=== PATIENT | female | born 1975 | race Caucasian/White ===

== ENCOUNTER → 2019-05-01 | Outpatient (CLI) | payer MEDICARE, MEDICAID ==
[~2019-05-01] MED LIST: ABILIFY; AZITHROMYCIN 2250 MG PO; CLONAZEPAM 1 MG1 M1 PO; COUMADIN; COUMADIN 5 MG TA5 M1 PO; DEXADRINE; DILAUDID 4 MG TA4 MG PO; DILTIA XT240 MG PO; DITROPAN XL5 M1; DITROPAN XL5 MG PO; ENOXAPARIN80 MG/0.8 SQ; ERYTHROMYCIN250 MG PO; ESTROPIPATE0.75 MG PO; FLEXERIL; K-DUR 20 MEQ T20 MEQ PO; LASIX 40 MG TAB40 MG PO; MIRAPEX 0.250.25 M1 PO; MIRAPEX0.125 MG PO; NORCO 5-325 TA1 EACH PO; OXYCONTIN CR 1010 M1; PEGINTRON; PREDNISONE 10 M10 M1 PO; PROZAC 20 MG20 MG PO; REBETOL200 MG; RESTORIL15 MG PO; TOPIRAGEN50 MG PO; VICOPROFEN 2001 EACH PO; VYVANSE60 MG; XANAX 0.5 MG0.5 MG; ZANTAC150 M2 PO; ZPAK PO
== END ==
LOC: M.RAD 14:26
DX: N64.4 Mastodynia (principal); Z88.8 Allergy status to other drugs, medicaments and biological substances

== ENCOUNTER → 2020-02-23 | Outpatient (CLI) | payer MEDICARE, MEDICAID | LOC: M.RAD 14:29 | PROVIDERS: ATTEND Internal Medicine | DX: M79.671 Pain in right foot (principal); M79.642 Pain in left hand ==

== ENCOUNTER → 2020-07-27 | Outpatient (CLI) | payer MEDICARE, MEDICAID | LOC: M.CT 07-25 12:51 → M.RAD 07-26 14:00 → M.CT 12:00 | PROVIDERS: ATTEND Internal Medicine | DX: R19.06 Epigastric swelling, mass or lump (principal); M79.671 Pain in right foot ==